=== PATIENT | female | born 1950 | race Caucasian/White ===

== ENCOUNTER → 2016-09-23 | Outpatient (CLI) | payer MEDICARE, MEDICAID ==
[~2016-09-23] MED LIST: ALL DAY ALLERGY10 M2 PO; ASPIRIN LO-DOSE81 MG PO; BACTROBAN N1 GM/TUBE TOP; BENADRYL25 MG PO; CALCIUM CITRAT100 GM PO; CELEXA40 MG PO; CERTAVITE SR-A1 EACH PO; CLARITIN10 MG PO; COUGHTAB200 MG PO; FLONASE ALLER15.8 ML INH; FOLIC ACID1 MG PO; GALZIN50 MG PO; KLONOPIN1 MG PO; MAGNESIUM OXID400 MG PO; MEDI PADS1 EACH; MOBIC15 MG PO; NORVASC5 MG PO; PROTONIX40 MG PO; TIZANIDINE HCL4 M1 PO; VITAMIN C500 M1 PO; VITAMIN D1000 UNIT PO; VITAMIN E400 UNI1 PO; ZANAFLEX4 MG PO
== END | disposition disaster alternative care site (69) ==
LOC: GRAD 15:00
DX: M54.12 Radiculopathy, cervical region (principal); M47.812 Spondylosis without myelopathy or radiculopathy, cervical region; M50.30 Other cervical disc degeneration, unspecified cervical region; Z98.1 Arthrodesis status